=== PATIENT | male | born 1950 | race Caucasian/White ===

== ENCOUNTER 2017-11-10 18:14 | Emergency (ER) | payer OTHER ==
[2017-11-10] MEDS ORDERED: LET GEL TOPICAL 1 EA SYR TP ONE ×3 (19:31→20:02)
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
[2017-11-10] MEDS ORDERED: IBUPROFEN 600 MG TAB PO ONE ×2 (19:43)
[2017-11-10 21:12] VITALS: BP 134/89
== END 2017-11-10 21:11 | disposition home or self-care (01) ==
PROC: 0CQ0XZZ Repair Upper Lip, External Approach (ICD-10-PCS; principal; 2017-11-10)
DX: S01.511A Laceration without foreign body of lip, initial encounter (principal); S20.91XA Abrasion of unspecified parts of thorax, initial encounter; S60.511A Abrasion of right hand, initial encounter; V18.9XXA Unspecified pedal cyclist injured in noncollision transport accident in traffic accident, initial encounter; Y92.89 Other specified places as the place of occurrence of the external cause; Y99.8 Other external cause status; Y93.55 Activity, bike riding